=== PATIENT | male | born 1950 | race Caucasian/White ===

== ENCOUNTER 2024-12-30 11:51 | Inpatient (IN) | payer MEDICARE, OTHER ==
[2024-12-30] MEDS ORDERED: Pantoprazole 40 MG VIAL ONE (12:25)
[2024-12-30 12:46] LABS: #Basophils 0.03 10x3/uL (0.0-0.2); #Eosinophils Less than 0.03 10x3/uL (0.0-0.7); #Monocytes 2.93 10x3/uL (0.11-0.59); #Neutrophils 16.45 10x3/uL (1.40-6.50); %Basophils 0.1 % (0.0-1.0); %Eosinophils 0.0 % (0.0-10.0); %Lymphocytes 10.2 % (21.0-51.0); %Monocytes 13.4 % (0.0-10.0); %Neutrophils 75.2 % (42.0-75.0); Hematocrit 31.3 % (42.0-52.0); Hemoglobin 10.2 g/dL (14.0-18.0); Mean Corpuscular Hemoglobin 32.9 pg (27.0-31.0); Mean Corpuscular Volume 101.0 fL (78.0-98.0); Platelet Count 290 10x3/uL (130-400); Red Blood Cell (RBC) Count 3.10 mill/uL (4.70-6.10); White Blood Cell (WBC) Count 21.89 10x3/uL (4.8-10.8)
[2024-12-30] MEDS ORDERED: Octreotide Acetate 1,250 MCG in Sodium Chloride 0.9% 250 ML 250 ML IVPB SCH ×2 (13:00→15:15)
[2024-12-30] MEDS ORDERED: Pantoprazole 80 MG, Admixture Fee 1 EACH in Sodium Chloride 0.9% 100 ML IVPB SCH (13:00)
[2024-12-30 13:01] LABS: INR-International Normal Ratio 2.8; Prothrombin Time 29.7 sec (12.0-14.7)
[2024-12-30 13:02] LABS: PTT 43.7 sec (22.9-36.1)
[2024-12-30 13:17] LABS: ALT (SGPT) 516 U/L (Less than 45); AST (SGOT) 1036 U/L (11-34); Albumin 2.2 g/dL (3.1-4.5); Alkaline Phosphatase 640 U/L (40-110); Anion Gap 25 mmol/L (10-20); BUN (Urea Nitrogen) 111 mg/dL (8.4-25.7); Bilirubin, Total 5.5 mg/dL (0.3-1.2); Calc. Creatinine Clearance 0 mL/min (70-130); Calcium 8.0 mg/dL (7.8-10.44); Carbon Dioxide 11 mmol/L (23-31); Chloride 110 mmol/L (98-107); Globulin 4.4 g/dL (2.4-3.5); Glucose 68 mg/dL (83-110); Potassium 7.7 mmol/L (3.5-5.1); Sodium 138 mmol/L (136-145)
[2024-12-30] MEDS ORDERED: cefTRIAXone (ROCEPHIN) 2 GM VIAL ONE ×2 (13:30→13:32)
[2024-12-30] MEDS ORDERED: Sodium Bicarb 50 MEQ/50 ML Abboject 8.4% SYRINGE ONE (13:30)
[2024-12-30] MEDS ORDERED: Dextrose 50% Abboject 50 ML SYRINGE ONE ×2 (13:31→13:39)
[2024-12-30] MEDS ORDERED: Calcium Chloride 1 GM/10 ML Abboject SYRINGE ONE (13:41)
[2024-12-30] MEDS ORDERED: Calcium Gluc 4.6 MEQ/10 ML (100 MG/ML) ONE (13:44)
[2024-12-30 15:16] LABS: Anion Gap 23 mmol/L (10-20); BUN (Urea Nitrogen) 110 mg/dL (8.4-25.7); Calc. Creatinine Clearance 0 mL/min (70-130); Calcium 8.2 mg/dL (7.8-10.44); Carbon Dioxide 13 mmol/L (23-31); Chloride 111 mmol/L (98-107); Glucose 160 mg/dL (83-110); Potassium 6.1 mmol/L (3.5-5.1); Sodium 141 mmol/L (136-145)
[2024-12-30] MEDS: Lactulose 10 GM/15 ML Oral Solution PR SCH (16:25)
[2024-12-30 16:42] LABS: Hematocrit 30.2 % (42.0-52.0); Hemoglobin 9.8 g/dL (14.0-18.0)
[2024-12-30] MEDS: Albumin 25% 25 GM (100 mL) BOT IVPB SCH (17:42)
[2024-12-30 17:50] LABS: Hep A IgM AB NONREACTIVE (NonReactive); Hep A IgM S/CO 0.16 S/CO (0-0.79); Hep B Core IgM Index 0.08 S/CO (0-0.79); Hep B Surf Ag NONREACTIVE S/CO (NonReactive); Hep C IgG Ab NONREACTIVE S/CO (NonReactive); Hep C Index 0.14 S/CO (0-0.79)
[2024-12-30 23:37] LABS: Hemoglobin 9.8 g/dL (14.0-18.0)
[2024-12-31 03:22] LABS: #Basophils 0.03 10x3/uL (0.0-0.2); #Eosinophils Less than 0.03 10x3/uL (0.0-0.7); #Monocytes 2.92 10x3/uL (0.11-0.59); #Neutrophils 15.51 10x3/uL (1.40-6.50); %Basophils 0.1 % (0.0-1.0); %Eosinophils 0.0 % (0.0-10.0); %Lymphocytes 11.0 % (21.0-51.0); %Monocytes 13.7 % (0.0-10.0); %Neutrophils 72.6 % (42.0-75.0); Hematocrit 28.0 % (42.0-52.0); Hemoglobin 9.0 g/dL (14.0-18.0); Mean Corpuscular Hemoglobin 33.6 pg (27.0-31.0); Mean Corpuscular Volume 104.5 fL (78.0-98.0); Platelet Count 208 10x3/uL (130-400); Red Blood Cell (RBC) Count 2.68 mill/uL (4.70-6.10); White Blood Cell (WBC) Count 21.39 10x3/uL (4.8-10.8)
[2024-12-31 04:11] LABS: INR-International Normal Ratio 3.4; PTT 47.2 sec (22.9-36.1); Prothrombin Time 34.4 sec (12.0-14.7)
[2024-12-31 04:35] LABS: CK (CPK) 6977 U/L (30-200)
[2024-12-31 04:43] LABS: AST (SGOT) 3356 U/L (11-34); Albumin 2.6 g/dL (3.1-4.5); Alkaline Phosphatase 577 U/L (40-110); Anion Gap 26 mmol/L (10-20); BUN (Urea Nitrogen) 108 mg/dL (8.4-25.7); Bilirubin, Total 5.3 mg/dL (0.3-1.2); Calc. Creatinine Clearance 0 mL/min (70-130); Calcium 8.1 mg/dL (7.8-10.44); Carbon Dioxide 13 mmol/L (23-31); Chloride 110 mmol/L (98-107); Globulin 3.0 g/dL (2.4-3.5); Glucose 166 mg/dL (83-110); Potassium 6.0 mmol/L (3.5-5.1); Sodium 143 mmol/L (136-145)
[2024-12-31] MEDS ORDERED: LOKELMA 10 GM PACKET PO SCH (05:30)
[2024-12-31 05:40] LABS: ALT (SGPT) 1356 U/L (Less than 45)
[2024-12-31] MEDS: Dextrose 50% Abboject 50 ML SYRINGE SLOW IVP SCH (05:42)
[2024-12-31] MEDS: Lactulose 10 GM/15 ML Oral Solution PR SCH (05:45)
[2024-12-31 07:04] LABS: Hemoglobin 8.9 g/dL (14.0-18.0)
[2024-12-31] MEDS: Pantoprazole 80 MG, Admixture Fee 1 EACH in Sodium Chloride 0.9% 100 ML IVP SCH (07:40)
[2024-12-31] MEDS: PNEUMOC 20-VAL CONJ-DIP CRM/PF 0.5 ML SYRINGE IM ONE (07:47)
[2024-12-31 11:48] VITALS: TEMP 98.9
[2024-12-31] MEDS ORDERED: cefTRIAXone\\ROCEPHIN 1 GM in Sodium Chloride 0.9% 100 ML IVPB SCH (14:00)
== END 2024-12-31 14:21 | disposition hospice, inpatient (51) | DRG 377 ==
LOC: ERS 11:51 → SUATTDRO 11:51 → ERHOLD 14:37 → CCU 15:49
PROVIDERS: ADMIT Internal Medicine; ATTEND Internal Medicine
PROC: 3E03329 Introduction of Other Anti-infective into Peripheral Vein, Percutaneous Approach (ICD-10-PCS; principal; 2024-12-30)
PROC: 30233L1 Transfusion of Nonautologous Fresh Plasma into Peripheral Vein, Percutaneous Approach (ICD-10-PCS; 2024-12-30)
PROC: 30233J1 Transfusion of Nonautologous Serum Albumin into Peripheral Vein, Percutaneous Approach (ICD-10-PCS; 2024-12-30)
DX: K92.2 Gastrointestinal hemorrhage, unspecified (principal); G93.41 Metabolic encephalopathy; I21.3 ST elevation (STEMI) myocardial infarction of unspecified site; K76.7 Hepatorenal syndrome; E87.20 Acidosis, unspecified; Z51.5 Encounter for palliative care; N18.5 Chronic kidney disease, stage 5; K76.6 Portal hypertension; N17.9 Acute kidney failure, unspecified; Z66 Do not resuscitate; K74.60 Unspecified cirrhosis of liver; E87.5 Hyperkalemia; I48.91 Unspecified atrial fibrillation; K75.81 Nonalcoholic steatohepatitis (NASH); D72.829 Elevated white blood cell count, unspecified; E16.2 Hypoglycemia, unspecified; I85.00 Esophageal varices without bleeding; R62.7 Adult failure to thrive
CPT/HCPCS: 36415; 36416; 36430; 70450; 71045; 74176; 80053; 80074; 82140; 82550; 83605; 84145; 84484; 85025; 85610; 85730; 86850; 86900; 86901; 87040; 87077; 87149; 87186; 93005; 93010; 93306; 94760; 96365; 96368; 96375; 96376; J0612; J0696; J1815; J2354; J2470; J3430; J7042; J7050; J7070; J7999; P9047; P9059

== ENCOUNTER 2024-12-31 14:39 | Inpatient (IN) | payer OTHER ==
[2024-12-31] MEDS ORDERED: Bisacodyl 10 MG SUPP PR PRN (15:15)
[2024-12-31] MEDS ORDERED: Ondansetron PF 4 MG/2 ML Vial IVP PRN (15:15)
[2024-12-31] MEDS ORDERED: PNEUMOC 20-VAL CONJ-DIP CRM/PF 0.5 ML SYRINGE IM ONE (21:00)
[2025-01-01] MEDS: Scopolamine 1 mg/72 hour Patch TOP PRN (11:46)
[2025-01-01] MEDS: Glycopyrrolate 0.4 MG/ 2 ML VIAL SLOW IVP PRN (17:27)
[2025-01-02 09:32] VITALS: TEMP 98.3
[2025-01-02 20:34] VITALS: BP 48/26
== END 2025-01-03 02:34 | disposition expired | DRG 951 ==
LOC: CCU 14:39 → T4-A 16:41
PROVIDERS: ADMIT Family Medicine; ATTEND Family Medicine
DX: Z51.5 Encounter for palliative care (principal); I21.3 ST elevation (STEMI) myocardial infarction of unspecified site; K76.7 Hepatorenal syndrome; G93.41 Metabolic encephalopathy; N17.9 Acute kidney failure, unspecified; E87.20 Acidosis, unspecified; D68.9 Coagulation defect, unspecified; K76.6 Portal hypertension; I85.10 Secondary esophageal varices without bleeding; R18.8 Other ascites; K92.2 Gastrointestinal hemorrhage, unspecified; Z66 Do not resuscitate; R79.89 Other specified abnormal findings of blood chemistry; N18.9 Chronic kidney disease, unspecified; D63.1 Anemia in chronic kidney disease; E78.5 Hyperlipidemia, unspecified; E87.5 Hyperkalemia; K74.60 Unspecified cirrhosis of liver
CPT/HCPCS: J2060; J2270